=== PATIENT | female | born 1955 | race Caucasian/White ===

== ENCOUNTER 2016-09-18 12:05 | Emergency (ER) | payer MEDICARE ==
[2016-09-18 12:43] VITALS: BP 131/56
[2016-09-18] MEDS ORDERED: Ketorolac INJ* 30 MG/ML 1 ML VIAL IM ONE (12:59)
[2016-09-18] MEDS ORDERED: Levalbuterol 0.63MG/3ML NEB INH ONE (13:01)
--- NOTE | 2016-09-18 13:07 | UC ---
Back Pain HPI - HPI Summary HPI Summary: 61 yo female with hx cervical spine fusion and compression fracture of t-s presents the day after a fall landed on stairs and injured T-S c/o mid back pain hurts to take a deep breath recently rx for pneumonia - History of Current Complaint Chief Complaint: UCBackPain Stated Complaint: BACK INJURY Time Seen by Provider: 09/18/16 12:46 Hx Obtained From: Patient Onset/Duration: Sudden Onset, Lasting Hours Severity Initially: Severe Severity Currently: Moderate Pain Intensity: 7 Pain Scale Used: 0-10 Numeric Back Pain: Is Discrete @ - btw should blades Character: Sharp Aggravating: Movement, Cough Alleviating: Rest Associated Signs And Symptoms: Positive: Other - chronic sob due to copd/now hurts to take a deep breath - Allergies/Home Medications Allergies/Adverse Reactions: Allergies Allergy/AdvReac Type Severity Reaction Status Date / Time Varenicline [From Chantix] Allergy Severe See Comment Verified 09/18/16 12:43 Cortisone Allergy INJECTION-RED Verified 09/18/16 12:43 LINE DOWN THE LEG Penicillins Allergy Nausea Verified 09/18/16 12:43 PMH/Surg Hx/FS Hx/Imm Hx Previously Healthy: Yes Endocrine History Of: Denies: Diabetes, Thyroid Disease Cardiovascular History Of: Reports: Cardiac Disorders, Hypertension, Pacemaker/ ICD Denies: Congestive Heart Failure Respiratory History Of: Reports: COPD, Bronchitis - HX Denies: Asthma GI/ History Of: Denies: Ulcer, Renal Disease Psychological History Of: Reports: Anxiety - ON MEDS, Depression - Surgical History Surgical History: Yes Surgery Procedure, Year, and Place: 1990 LEFT KNEE SURGERY, [place], [place]. 1997 LEFT KNEE SURGERY, [place], [place]. 2003 RIGHT HAND SURGERY, [id number] & 2005 NECK FUSION X , [facility] [place]; HEART CATH 2012 @ [facility]; OPEN HEART SX 08/2012 AT [facility]; TORN NERVE REPAIR RT HAND @[facility] 2007; SKIN CANCER REMOVAL TO HER FACE 2012; - Family History Known Family History: Positive: Hypertension Family History: NON CONTRIBUTORY - Social History Alcohol Use: None Substance Use Type: None Smoking Status (MU): Light Every Day Tobacco Smoker Type: Cigars Amount Used/How Often: 6 cigs per day Household Exposure Type: Cigarettes Review of Systems Constitutional: Negative Skin: Negative Eyes: Negative ENT: Negative Respiratory: Shortness Of Breath - chronic Cardiovascular: Negative Gastrointestinal: Negative Genitourinary: Negative Motor: Negative Neurovascular: Negative Musculoskeletal: Arthralgia Neurological: Negative Psychological: Negative All Other Systems Reviewed And Are Negative: Yes Physical Exam Triage Information Reviewed: Yes Appearance: Well-Appearing, No Pain Distress, Well-Nourished Vital Signs: Initial Vital Signs Temp 98.6 F 09/18/16 12:33 Pulse 100 09/18/16 12:33 Resp 20 09/18/16 12:33 BP 131/56 09/18/16 12:33 Pulse Ox 93 09/18/16 12:33 Eyes: Positive: Conjunctiva Clear ENT: Positive: Hearing grossly normal. Negative: Nasal congestion, Nasal drainage, TM bulging Neck: Positive: Nontender, Other: - decrease ROM, surgical scar Respiratory: Positive: No respiratory distress, No accessory muscle use, Crackles - both bases, Wheezing. Negative: Respiratory distress Cardiovascular: Positive: RRR, No Murmur Abdomen Description: Positive: Nontender Bowel Sounds: Positive: Present Neurological: Positive: Alert Psychological Exam: Normal Skin Exam: Normal Re-Evaluation - Re-Evaluation First Eval Re-Evaluation Time: 13:45 Change: Improved Comment: pain improved as is breathing. decreased wheezing Back Pain Course/Dx - Differential Dx/Diagnosis Provider Diagnoses: thoraic strain. bronchospasm Discharge - Discharge Plan Condition: Stable Disposition: HOME Prescriptions: Naproxen [Naproxen 500 MG TABS] 500 mg PO BID PRN #20 tab PRN Reason: Pain Patient Education Materials: Bronchospasm (ED), Back Pain (ED) Referrals: Rosa Cuello MD [Primary Care Provider] - 4 Days Additional Instructions: recheck later this week if not better Images Front/Back of Body, Lg (B[place]linger): 1 - tender
--- NOTE | 2016-09-18 13:28 | RAD ---
HISTORY: Fall COMPARISONS: May 19, 2014, CT of the thoracic spine dated April 05, 2016 VIEWS: 2: Frontal dual-energy and lateral views of the chest. FINDINGS: CARDIOMEDIASTINAL SILHOUETTE: The cardiomediastinal silhouette is normal. A prosthetic heart valve is noted POLLY: The polly are normal. PLEURA: The costophrenic angles are sharp. No pleural abnormalities are noted. LUNG PARENCHYMA: The lungs are clear. ABDOMEN: The upper abdomen is clear. There is no subphrenic gas. BONES AND SOFT TISSUES: Again noted is a compression deformity of the lower thoracic spine, stable from the previous CT examination. The patient is status post median sternotomy. Patient is status post cervical fusion. OTHER: Left-sided pacemaker is noted. IMPRESSION: STABLE COMPRESSION DEFORMITY OF THE LOWER THORACIC SPINE. NO ACTIVE CARDIOPULMONARY DISEASE.
--- NOTE | 2016-09-18 13:29 | RAD ---
HISTORY: Fall COMPARISONS: April 05, 2016 VIEWS: 3, Frontal and lateral views of the thoracic spine. FINDINGS: ALIGNMENT: The alignment is normal. VERTEBRAL BODIES: There is a stable compression deformity of the lower thoracic spine at approximately T12. There is mild anterolateral marginal osteophyte formation. JOINTS: Unremarkable. INTERVERTEBRAL DISCS: There is diffuse loss of intervertebral disc height. SOFT TISSUE: Unremarkable OTHER: The visualized lungs are clear. The patient is status post median sternotomy. IMPRESSION: STABLE COMPRESSION DEFORMITY OF THE LOWER THORACIC SPINE
== END 2016-09-18 13:56 | disposition home or self-care (01) ==
LOC: UCEAST 12:05
DX: S29.012A Strain of muscle and tendon of back wall of thorax, initial encounter (principal); J98.01 Acute bronchospasm; J44.9 Chronic obstructive pulmonary disease, unspecified; W10.9XXA Fall (on) (from) unspecified stairs and steps, initial encounter; Y92.9 Unspecified place or not applicable; Z88.0 Allergy status to penicillin; F41.9 Anxiety disorder, unspecified; F32.9 Major depressive disorder, single episode, unspecified; F17.210 Nicotine dependence, cigarettes, uncomplicated
CPT/HCPCS: 71020; 72070; 99212; A9270-GY; G0463; J1885